=== PATIENT | female | born 1985 | race Caucasian/White ===

== ENCOUNTER 2021-06-27 03:32 | Outpatient (CLI) | payer OTHER, SELFPAY ==
[2021-06-27 16:02] LABS: Kit/Specimen SENT
[2021-06-27 16:12] LABS: Glucose,1 Hr (Glucola) 114 mg/dL (80-140)
[2021-06-27 16:47] LABS: TSH (W/Ref FT4) 0.81 uIU/mL (0.36-3.74)
[2021-06-27 16:54] LABS: HCT 34.7 % (36.0-46.0); HGB 11.3 g/dL (11.2-15.7); MCH 27.2 pg (27.0-33.0); MCHC 32.6 % (32.0-36.0); MCV 83 fL (80-95); MPV 11.3 fL (8.0-11.0); Platelet Count 260 10^3/uL (130-400); RBC 4.16 10^6/uL (3.93-5.22); RDW 14.3 % (11.7-14.6); RDW-SD 43.8 fL; WBC 11.09 10^3/uL (4.4-10.8)
[2021-06-27 19:32] LABS: Absolute Lymphocyte Count 2.22 10^3/uL (1.2-3.4); Absolute Neutrophil Count 8.21 10^3/uL (1.2-6.7)
[2021-06-27 19:33] LABS: Absolute Monocyte Count 0.67 10^3/uL (0.1-0.8); Diff Comment Manual Differential; RBC Morphology Normal
[2021-07-01 10:36] LABS: HIV-1/2 Ag & Ab Screen Negative (Negative)
[2021-07-01 11:12] LABS: Hepatitis C Ab w Rflx HCV PCR Negative (Negative)
[2021-07-01 11:43] LABS: Rubella IgG Ab (UVM) Positive (See Note); Varicella IgG Antibody Positive (See Note)
[2021-07-01 12:07] LABS: Hepatitis B Surface Ag Negative (Negative)
[2021-07-01 17:30] LABS: Syphilis IgG w/Reflex Nonreactive (Nonreactive)
[2021-07-02 16:19] LABS: Specimen WB Whole Blood
[2021-07-06 16:35] LABS: Result Summary NEGATIVE; Specimen WB Whole Blood
== END 2021-06-27 03:33 | disposition home or self-care (01) ==
LOC: LBO 03:32
PROVIDERS: Visit Provider Advanced Practice Midwife
DX: Z34.91 Encounter for supervision of normal pregnancy, unspecified, first trimester (principal); Z3A.11 11 weeks gestation of pregnancy
CPT/HCPCS: 80307; 81329; 82950; 86787; 86803; 86850; 86900; 86901; 87340; 87389; 81220; 84443; 85025; 86762; 86780; 87086; 87480; 87510; 87660

== ENCOUNTER 2021-06-27 16:39 | Outpatient (REF) | payer OTHER, SELFPAY ==
--- NOTE | 2021-06-27 15:00 | PAPFT_PTH ---
PATIENT: Paola Lombardo LOC: [facility] U#:[id number] AGE/SX: 36/F ROOM: RE06/27/[address]: Parvin Jeffrey CNM : 1985 BED: DIS: 06/27/2021 SPEC #: [id number] RECD: 06/27/21 17:31 STATUS: RAN REJesse #: [id number] EWA: 06/27/21 15:[address]: Parvin Jeffrey DEPT: [facility] Cytology RECD BY: Casandra Corona Tissues: 1 - CX/ENDOCX FOR PAP SMEARS Procedures: PAP THIN PREP/UVM Screening HPV DNA PROBE Comments: [id number] (YANI/JATINDER)
[2021-06-27 17:01] LABS: *AMPHETAMINES SCREEN URINE Negative (Negative); *BARBITURATES SCREEN URINE Negative (Negative); *BENZODIAZEPINES SCREEN URINE Negative (Negative); Cannabinoids THC Negative (Negative); Cocaine Screen,Urine Negative (Negative); METHADONE URINE SCREEN Negative (Negative); OPIATES URINE SCREEN Negative (Negative); Tricyclic Antidepressants Negative (Negative)
[2021-06-28 15:12] LABS: Chlamydia Result Negative (Negative); GC Result Negative (Negative)
[2021-07-04 14:09] LABS: Buprenorphine Negative ng/mL (Cutoff: 5.0); Norbuprenorphine Negative ng/mL (Cutoff: 2.5)
== END 2021-06-27 16:40 | disposition home or self-care (01) ==
LOC: LBN 16:39
PROVIDERS: Visit Provider Advanced Practice Midwife
DX: O26.891 Other specified pregnancy related conditions, first trimester (principal); N89.8 Other specified noninflammatory disorders of vagina; Z12.4 Encounter for screening for malignant neoplasm of cervix; Z11.51 Encounter for screening for human papillomavirus (HPV); Z3A.11 11 weeks gestation of pregnancy; Z11.3 Encounter for screening for infections with a predominantly sexual mode of transmission
CPT/HCPCS: 80307; 87491; 87591; 88142; 87086; 87480; 87510; 87624; 87660

== ENCOUNTER 2021-10-23 01:48 | Outpatient (CLI) | payer OTHER, SELFPAY ==
[2021-10-23 16:17] LABS: HCT 28.6 % (36.0-46.0); HGB 9.3 g/dL (11.2-15.7); MCH 28.3 pg (27.0-33.0); MCHC 32.5 % (32.0-36.0); MCV 87 fL (80-95); MPV 10.1 fL (8.0-11.0); Platelet Count 264 10^3/uL (130-400); RBC 3.29 10^6/uL (3.93-5.22); RDW 12.1 % (11.7-14.6); RDW-SD 39.2 fL; WBC 11.75 10^3/uL (4.4-10.8)
[2021-10-23 16:27] LABS: Glucose,1 Hr (Glucola) 139 mg/dL (80-140)
== END 2021-10-23 01:49 | disposition home or self-care (01) ==
LOC: LBO 01:48
PROVIDERS: Advanced Practice Midwife; Visit Provider Advanced Practice Midwife
DX: Z34.93 Encounter for supervision of normal pregnancy, unspecified, third trimester (principal)
CPT/HCPCS: 36415; 82950; 85027

== ENCOUNTER 2021-11-08 02:09 | Outpatient (CLI) | payer OTHER, SELFPAY ==
[2021-11-08 09:22] LABS: Glucose 1 Hour 139 mg/dL
[2021-11-08 11:48] LABS: Glucose 3 Hour 70 mg/dL
== END 2021-11-08 02:10 | disposition home or self-care (01) ==
LOC: LBO 02:09
PROVIDERS: Visit Provider Advanced Practice Midwife
DX: Z34.93 Encounter for supervision of normal pregnancy, unspecified, third trimester (principal)
CPT/HCPCS: 36415; 82951

== ENCOUNTER → 2021-11-20 01:11 | Outpatient (CLI) | payer OTHER, SELFPAY ==
--- NOTE | 2021-11-20 06:30 | DI.US_ITS ---
Exam(s) US OB JUAN WEIGHT EXAM: US OB JUAN WEIGHT CLINICAL HISTORY: interval growth of fetus and fibroid,d25.9,z34.90 TECHNIQUE: Ultrasound performed using standard protocol. COMPARISON: No exams were available for comparison FINDINGS: Ob ultrasound was performed utilizing 3rd trimester protocol. biometry is consistent with gest ational age of 32 weeks 0 days with with an EDC of January 15. Estimated weight is 1889 grams which is at the 35th percentile for predicted gestational age. Placenta is anterior and fundal. No placenta previa. Inferior placental margin 13 cm from internal cervical os. The cervical length is 3.8 cm. Fetus is in breech presentation. heart rate is 142 BPM. There is visually a normal quantity of amniotic fluid and the JUAN is 12 IMPRESSION: DATA REPOSITORY:
== END ==
PROVIDERS: Visit Provider Advanced Practice Midwife
DX: D25.9 Leiomyoma of uterus, unspecified (principal); Z34.93 Encounter for supervision of normal pregnancy, unspecified, third trimester
CPT/HCPCS: 76816

== ENCOUNTER 2021-12-13 15:42 | Outpatient (CLI) | payer OTHER, SELFPAY ==
[2021-12-13 15:57] VITALS: BP 130/75; PULSE 69
[2021-12-13 16:13] LABS: HCT 35.2 % (36.0-46.0); HGB 11.3 g/dL (11.2-15.7); MCH 28.6 pg (27.0-33.0); MCHC 32.1 % (32.0-36.0); MCV 89 fL (80-95); MPV 10.3 fL (8.0-11.0); Platelet Count 230 10^3/uL (130-400); RBC 3.95 10^6/uL (3.93-5.22); RDW 15.1 % (11.7-14.6); RDW-SD 49.6 fL
[2021-12-13 16:29] LABS: ALT 15 U/L (14-59); AST 17 U/L (15-37); Albumin 2.9 g/dL (3.4-5.0); Alkaline Phosphatase 108 U/L (46-116); Anion Gap 9.8 mmol/L (3-11); BUN 11 mg/dL (7-18); Bilirubin, Total 0.5 mg/dL (0.2-1.0); CO2 21.2 mmol/L (21.0-32.0); CREATININE 0.7 mg/dL (0.55-1.02); Calcium 8.8 mg/dL (8.5-10.1); Chloride 108 mmol/L (98-107); Estimated GFR 116.31 (mL/min/1.73m2); Glucose 78 mg/dL (74-106); LDH 135 U/L (81-234); Potassium 3.8 mmol/L (3.5-5.1); Sodium 139 mmol/L (136-145); Total Protein 6.7 g/dL (6.4-8.2); Uric Acid 4.8 mg/dL (2.6-6.0)
[2021-12-13 16:30] VITALS: BP 130/76; TEMP 36.7
[2021-12-13 16:37] VITALS: BP 131/74; PULSE 69
[2021-12-13 16:40] VITALS: BP 131/74; PULSE 69
[2021-12-13 18:08] LABS: COMMENT (LAB VIEW ONLY) 109.02 mg/dL; PROTEIN 11.5 mg/dL
--- NOTE | 2021-12-14 10:38 | W.OBNST ---
Date of service: 12/13/21 Time of Service: 18:00 NST Evaluation Reason for NST Reasons for Nonstress Test: GESTATIONAL HYPERTENSION Gestational Age Gestational Age in Weeks and Days: 35 Weeks and 3Days Test and Monitor Explained Test/Monitor Explained: Test Explained and Monitor Explained Vital Signs Blood Pressure: 130/76 Temperature: 98.1 F NST Information Date on Monitor: 12/13/21 Time on Monitor: 15:45 Date off Monitor: 12/13/21 Time off Monitor: 16:40 Total Time on Monitor: 55 NST Interventions: None Contraction Frequency: q1-4 NST Evaluation Patient States Movement: Present FHR Baseline: 135 Variability: Moderate 6-25 bpm Accelerations: 15x15 Decelerations: None NST Results: Reactive Note NST Note Note: Paola had BP elevation at the office today. BP at the center 130s/70s. No edema noted. serum labs WNL. protein/creatinene ratio pending. Paola had a meeting with Louise FABIAN today. NST Reviewed and Verified by: Radha Hagen
[2021-12-14 10:39] VITALS: BP 130/76; TEMP 36.7
== END 2021-12-13 16:55 | disposition home or self-care (01) ==
LOC: BCD 15:42 → OBS 15:51
PROVIDERS: Visit Provider Advanced Practice Midwife
DX: O13.3 Gestational [pregnancy-induced] hypertension without significant proteinuria, third trimester (principal); Z3A.35 35 weeks gestation of pregnancy
CPT/HCPCS: 59025; 80053; 85027; 82565; 83615; 84156; 84550

== ENCOUNTER 2021-12-20 11:01 | Outpatient (CLI) | payer OTHER, SELFPAY ==
--- NOTE | 2021-12-20 | DI.US_ITS ---
Exam(s) US OB JUAN WEIGHT EXAM: US OB JUAN WEIGHT CLINICAL HISTORY: Size less than dates, gestation HTN. TECHNIQUE: Transabdominal obstetrical ultrasound was performed. COMPARISON: US US OB JUAN WEIGHT from 11/20/2021 FINDINGS: There is a single viable intrauterine gestation with cardiac activity identified-138 bpm The fetus is presently in cephalic position . Amniotic fluid: There is a normal amount of amniotic fluid with an JUAN of 14.3cm. Placental location: The placenta is anterior,with no evidence of placenta previa.Cervical length is 3 .5 cm and closed. Dating parameters place this at approximately 34 weeks and 6 days gestational age, implying FRANCIS of January 25, 2022. BPD measures 34 weeks and 4 days HC measures 34 weeks and 3 days AC measures 36 weeks and 3 days FL measures 33 weeks and 5 days Estimated weight is 2645 gm-5 pounds, 13 ounces Fetus is at the 23rd percentile on the Hadlock scale. IMPRESSION:: Viable 3rd trimester gestation, as described above. DATA REPOSITORY:
[2021-12-20 11:11] VITALS: BP 148/72; PULSE 64; TEMP 37.3
[2021-12-20 11:28] VITALS: BP 148/72; PULSE 64
[2021-12-20 11:54] VITALS: BP 127/81; PULSE 71
[2021-12-20 12:05] LABS: HCT 36.3 % (36.0-46.0); HGB 12.1 g/dL (11.2-15.7); MCH 29.2 pg (27.0-33.0); MCHC 33.3 % (32.0-36.0); MCV 88 fL (80-95); MPV 10.7 fL (8.0-11.0); Platelet Count 224 10^3/uL (130-400); RBC 4.14 10^6/uL (3.93-5.22); RDW 15.3 % (11.7-14.6); RDW-SD 49.1 fL; WBC 10.69 10^3/uL (4.4-10.8)
[2021-12-20 12:31] LABS: COMMENT (LAB VIEW ONLY) 54.19 mg/dL; PROTEIN 8.1 mg/dL; Prot/Crea Ur Ratio 0.14
[2021-12-20 12:32] LABS: ALT 16 U/L (14-59); AST 16 U/L (15-37); Albumin 2.9 g/dL (3.4-5.0); Alkaline Phosphatase 112 U/L (46-116); Anion Gap 10.8 mmol/L (3-11); BUN 9 mg/dL (7-18); Bilirubin, Total 0.6 mg/dL (0.2-1.0); CO2 21.2 mmol/L (21.0-32.0); CREATININE 0.6 mg/dL (0.55-1.02); Calcium 9.1 mg/dL (8.5-10.1); Chloride 106 mmol/L (98-107); Estimated GFR 120.72 (mL/min/1.73m2); Glucose 100 mg/dL (74-106); Potassium 3.7 mmol/L (3.5-5.1); Sodium 138 mmol/L (136-145); Total Protein 6.7 g/dL (6.4-8.2); Uric Acid 4.7 mg/dL (2.6-6.0)
--- NOTE | 2021-12-20 12:36 | W.OBNST ---
Date of service: 12/20/21 Time of Service: 12:36 NST Evaluation Reason for NST Reasons for Nonstress Test: GESTATIONAL HYPERTENSION Gestational Age Gestational Age in Weeks and Days: 36 Weeks and 3Days Test and Monitor Explained Test/Monitor Explained: Test Explained, Monitor Explained and Patient Verbalized Understanding Vital Signs Blood Pressure: 148/72 (retaken 10 minutes jxodo=[id number]/81) Pulse: 64 Temperature: 99.1 F NST Information Time on Monitor: 11:16 NST Interventions: PO Hydration NST Evaluation Patient States Movement: Present Variability: Moderate 6-25 bpm Accelerations: 15x15 Decelerations: None Note NST Note Note: Labs drawn and nml 4 wk interval growth scan done today Weekly NST's & BP check will be scheduled Pt takes BP at home/work daily NST Reviewed and Verified by: Parvin Jeffrey
[2021-12-20 12:37] VITALS: BP 148/72; PULSE 64; TEMP 37.3
== END 2021-12-20 13:15 | disposition home or self-care (01) ==
LOC: BCD 11:02 → OBS 11:10
PROVIDERS: Advanced Practice Midwife; Visit Provider Advanced Practice Midwife
DX: O13.3 Gestational [pregnancy-induced] hypertension without significant proteinuria, third trimester (principal); O26.843 Uterine size-date discrepancy, third trimester; Z36.85 Encounter for antenatal screening for Streptococcus B; Z3A.36 36 weeks gestation of pregnancy
CPT/HCPCS: 59025; 36415; 76816; 80053; 85027; 82565; 84156; 84550; 87081

== ENCOUNTER 2021-12-25 14:45 | Outpatient (CLI) | payer OTHER, SELFPAY ==
[2021-12-25 15:29] VITALS: BP 133/74; PULSE 63; TEMP 36.8
[2021-12-25 15:52] VITALS: BP 133/74; PULSE 63
--- NOTE | 2021-12-25 16:20 | W.OBNST ---
Date of service: 12/25/21 Time of Service: 15:30 NST Evaluation Reason for NST Reasons for Nonstress Test: GESTATIONAL HYPERTENSION Gestational Age Gestational Age in Weeks and Days: 37 Weeks and 1Days Test and Monitor Explained Test/Monitor Explained: Test Explained and Monitor Explained Vital Signs Blood Pressure: 133/74 Pulse: 63 Temperature: 98.2 F Urine Results Urine Protein: Negative Urine Ketones: Negative Urine Glucose: Negative Urine Blood: Negative NST Information Date on Monitor: 12/25/21 Time on Monitor: 15:34 Date off Monitor: 12/25/21 Time off Monitor: 16:05 Total Time on Monitor: 31 NST Interventions: PO Hydration Contraction Frequency: Q2min NST Evaluation FHR Baseline: 125 Variability: Moderate 6-25 bpm Accelerations: 15x15 Decelerations: None NST Results: Reactive Note NST Note Note: Reactive and reassuring NST. Declines VE today. Is planning repeat NST and JUAN in 1 week per consult with Dr. Mary today. Dr. Mary had also visited with Paola as she was asking about possibility of scheduled C/S vs induction. She had read that induction for HTN increases risk of C/S. I reviewed that that it somewhat true and that it is increased for women with severe hypertension on medications more so than for her at this time. Dr. Mary agreed with this and patient is feeling even more reassured. NST Reviewed and Verified by: Radha Musa
[2021-12-25 16:23] VITALS: BP 133/74; PULSE 63; TEMP 36.8
== END 2021-12-25 16:11 | disposition home or self-care (01) ==
LOC: BCD 15:25 → OBS 15:28
PROVIDERS: Visit Provider Advanced Practice Midwife
DX: O13.3 Gestational [pregnancy-induced] hypertension without significant proteinuria, third trimester (principal); Z3A.37 37 weeks gestation of pregnancy
CPT/HCPCS: 59025

== ENCOUNTER 2021-12-31 07:22 | Outpatient (CLI) | payer OTHER, SELFPAY ==
[2021-12-31 16:15] VITALS: BP 135/82; PULSE 63; TEMP 36.6
[2021-12-31 16:24] VITALS: BP 150/85; PULSE 63
--- NOTE | 2021-12-31 16:43 | W.OBNST ---
Date of service: 12/31/21 Time of Service: 16:43 NST Evaluation Reason for NST Reasons for Nonstress Test: GESTATIONAL HYPERTENSION Gestational Age Gestational Age in Weeks and Days: 38 Weeks and 0Days Test and Monitor Explained Test/Monitor Explained: Test Explained, Monitor Explained and Patient Verbalized Understanding Vital Signs Blood Pressure: 135/82 Pulse: 63 Temperature: 97.9 F Urine Results Urine Protein: Negative Urine Ketones: Negative Urine Glucose: Negative Urine Blood: Negative NST Information Date on Monitor: 12/31/21 Time on Monitor: 16:13 Date off Monitor: 12/31/21 Time off Monitor: 16:33 Total Time on Monitor: 20 NST Interventions: PO Hydration Contraction Frequency: 3-6 NST Evaluation Patient States Movement: Present FHR Baseline: 135 Variability: Moderate 6-25 bpm Accelerations: 15x15 Decelerations: None NST Results: Reactive Note NST Note Note: 12/31/21 Margarita had NST for GHTN which is reactive and reassurng. BP stable. No signs of pre-eclampsia. JUAN 15.7 in office today. Agrees to induction on 01/10/22 which is 39w3d. I have reviewed signs of labor and signs of pre-eclampsia with margarita and she will call with any concerns. NST Reviewed and Verified by: Radha Musa
[2021-12-31 16:45] VITALS: BP 135/82; PULSE 63; TEMP 36.6
== END 2021-12-31 16:43 | disposition home or self-care (01) ==
LOC: BCD 07:23 → OBS 15:18
PROVIDERS: Visit Provider Advanced Practice Midwife
DX: O13.3 Gestational [pregnancy-induced] hypertension without significant proteinuria, third trimester (principal); Z3A.38 38 weeks gestation of pregnancy
CPT/HCPCS: 59025

== ENCOUNTER 2022-01-10 08:16 | Inpatient (IN) | payer OTHER, SELFPAY ==
[2022-01-10] VITALS (7 sets, daily range): BP systolic 122–151; BP diastolic 71–99; PULSE 61–71; RESP 18–20; TEMP 36.4–36.9
--- NOTE | 2022-01-10 08:23 | W.PM.OBHPL1 ---
Date of service: 01/10/22 Time of Service: 08:23 Assessment and Plan Assessment and plan (1) Gestational hypertension: Status: Acute Assessment and plan: A: 36 yo @ 39+3 wks gestational HTN without severe features unfavorable cvx with antonio score of 4 Category 1 tracing GBS neg, low risk for SD, moderate risk for PPH P: Admit for cervical ripening/IOL Baseline labs ordered, COVID swab done Misoprostel per guidelines; consider cervical balloon Once antonio score advances will consider AROM, pitocin Pt counseled on R&B, time required for successful ripening Dr. Trejo available for consultation prn OB-HPI Labor/Delivery History of Present Illness Reason for Visit: Gestational HTN at 39 weeks Chief Complaint: Scheduled Induction of Labor Indication for Induction: Gestational Hypertension. FRANCIS Calculator Estimated Delivery Date Method Current WG Current Estimate 01/14/22 Ultrasound #1 39w 3d Other Estimates 01/09/22 LMP (Certain) 40w 1d Comments: Paola began having systolic BP readings in the office of 140 at 34 wks, with two recorded elevations in the center of 148 and 150, interspersed with normal readings for the past month, weekly NST's have been reactive. Labs have been checked twice, all levels nml. Ultrasound at 36 wks shows growth in 23rd percentile with JUAN of 14, JUAN rechecked last week and found nml @ 15. This morning pt's BP is stable at 130's over 75, she denies symptoms, and NST is reactive, labs pending. Other previous findings include a uterine fibroid noted on ultrasound report earlier in the , and anemia in the third trimester treated with iron supplementation. She is admitted for induction of labor via cervical ripening due to gestational HTN without severe features. Risks and benefits of ripening and induction versus expectant management have been reviewed with pt and she consents to beginning the cervical ripening process. History of Present Expected Delivery Route/Plan - CNM FOB/ - Roshan Lombardo (first child) BB Quinton Naif Lombardo yes to circ GBS negative Specific Issues/Plan 1. Pt & are vaccinated and boosted 2. BMI 33, early [id number] 2a. 28 week 1 hour 139: 3 hr GTT 11/08: nml x4 3. FOB with right bundle branch block (RBBB); no tx 4. Pt's father, pgm & cousin with bicuspid aortic valve 4a. Offered level 2 scan w/MFM consult @ [facility], possible echo, declined. 5. cfDNA low prob x5, male, CF & SMA negative, declines AFP at 16-20 wks 6. Low dose ASA for nulliparity & BMI 33, start @ 12 wks 7. LC consult after 36 wks: large breasted, left nipple somewhat flat 8. Bacterial vaginosis- metronidazole escribed 9. Single 5x4x3 cm fibroid @ 18 wk US, interval growth of fetus & fibroid @ 32 wks 9a. US 11/20 Breech, growth 35%, JUAN WNL, no mention of fibroid 10. Anemia @ 28 wks: hgb 9.3/hct 28.6, start ferrous sulfate 10/24 11. Hypertension- weekly testing and labs PRN 11a. 36 wk scan for EFW in 23rd percentile, JUAN=14, cephalic Informed Consent Informed Consent: Induction of Labor (via cervical ripening) and Risk,Benefits,Alternatives Discussed Review of Systems Narrative: ROS completed and found noncontributory other then HPI PFSH All Active Problems (Updated 01/10/22 @ 09:05 by Parvin Jeffrey) Gestational hypertension (Acute) Fibroid, uterine (Acute) (Acute) BMI 33.0-33.9,adult (Acute) Medical History (Updated 01/10/22 @ 09:05 by Parvin Jeffrey) Anemia affecting Constipation during Family history of bicuspid aortic valve Family History (Updated 12/06/21 @ 16:19 by Radha Hagen CNM) Mother Breast cancer at age 58 Hypertension Father Congenital heart valve abnormality Maternal Grandmother Heart disease Social History Smoking/Tobacco Use Status: Never Smoking risk assessment performed?: Yes Alcohol Intake: never Drug use: Never Substance use type: does not use Do you feel safe at home: Yes Do you feel safe in your relationship?: Yes History History 2 Para 0 Hx # Term Pregnancies 0 Multiple births 0 Hx # Pregnancies 0 Ectopic pregnancies 0 AB induced 1 Hx Number of Living Children 0 AB spontaneous 0 Meds Allergies and Home Medications Allergies Allergy/AdvReac Type Severity Reaction Status Date / Time No Known Allergies Allergy Verified 12/31/21 15:43 Home Medications Medication Instructions Recorded Confirmed Type vits 75-iron 28 mg-folic pkg PO 06/03/21 12/31/21 History acid 800 mcg-omega-3 oral combo pack (One A Day Women's DHA) ferrous sulfate 325 mg (65 mg 325 mg PO DAILY #90 tabs 10/24/21 12/31/21 Rx iron) tablet aspirin 81 mg tablet,delayed 81 mg PO DAILY #90 tabs 10/28/21 12/31/21 Rx release docusate sodium 100 mg capsule 100 mg PO BID #60 caps 10/28/21 12/31/21 Rx (Colace) Exam Physical Exam Vital signs: Temp Pulse Resp BP 97.5 F L 71 18 138/75 01/10/22 08:18 01/10/22 08:18 01/10/22 08:18 01/10/22 08:18 Vital Signs Reviewed: Yes Constitutional Constitutional: no acute distress, average body habitus and cooperative Detailed Labor and Delivery Exam Dilation: 1.5 Effacement (%): 60 station: -4 Cervix position: posterior Consistency: medium ANTONIO Score(Cervical Ripeness Score): 4 Amniotic Membrane Status: Intact Contraction Frequency(min): 0 Fetus A Heart Rate Baseline: 140 Monitor Accelerations: 15 X 15 Monitor Decelerations: None Variability: Moderate (6-25 BPM) Categories: Category I Est. Weight: 6 lb 9.822 oz Est. Weight: 3000 gms HEENT Exam HEENT Exam: Normal Neck Exam Neck Exam: Normal Chest/Brest/Axilla Exam Chest Exam: Normal Breast Exam Breast Exam: Not Done Respiratory Exam Respiratory Exam: Normal Cardiovascular Exam Cardiovascular Exam: Normal Abdominal Exam Abdominal Exam: Normal (Gravid, nontender) Rectal Exam Rectal Exam: Normal Exam Exam: Normal Extremities Exam Extremities Exam: Normal Back/Spine/Pelvis Exam Back Exam: Normal Pelvis Adequate: Yes Skin Exam Skin Exam: Normal Neurological Exam Neurological Exam: Normal Psychiatric Exam Psychiatric Exam: Normal Results Results Group Beta Strep: Negative Blood Type: O+ Rubella Status: Immune Varicella Immunity: Immune Risk Assessment Risk for Shoulder Dystocia Historical/Initial OB: POSITIVE FOR: Pre- BMI>30; NEGATIVE FOR: Pelvic Abnormality, Previous Shoulder Dystocia or Previous Macrosomia Increased Risk?: No Risk for Pre-Eclampsia Date Initiated/Initials: to start @ 12 wks jk Yes, if one or more: NEGATIVE FOR: Hx Pre-E/Gest HTN, Chronic HTN, Multiple Gestation, Pre-gestational DM, Renal Disease, Systemic Lupus or APA Syndrome Yes, if 2 or more: POSITIVE FOR: Nulliparity and BMI>30; NEGATIVE FOR: Age>= 35 yrs, >10yr btwn pregnancies, ethinicty, Mother/Sister w/ Pre-E or Previous IUGR Risk for Post- Hemorrhage Initial: NEGATIVE FOR: Multiple Gestation, Previous PPH, Known Clotting Deficiency, Grand Multiparity or Anticoagulation At Risk?: Yes (due to gest HTN and induction procedures) Risks Reviewed Risks Reviewed Upon Admission: Yes
[2022-01-10 08:46] LABS: HCT 38.3 % (36.0-46.0); MCH 29.7 pg (27.0-33.0); MCHC 33.9 % (32.0-36.0); MCV 87 fL (80-95); MPV 10.9 fL (8.0-11.0); Platelet Count 222 10^3/uL (130-400); RBC 4.38 10^6/uL (3.93-5.22); RDW 14.9 % (11.7-14.6); RDW-SD 48.6 fL; WBC 8.62 10^3/uL (4.4-10.8)
[2022-01-10 08:54] LABS: Source Nasal/Nares
[2022-01-10 08:55] LABS: ALT 20 U/L (14-59); AST 19 U/L (15-37); Albumin 2.8 g/dL (3.4-5.0); Alkaline Phosphatase 126 U/L (46-116); Anion Gap 8.7 mmol/L (3-11); BUN 12 mg/dL (7-18); Bilirubin, Total 0.6 mg/dL (0.2-1.0); CO2 21.3 mmol/L (21.0-32.0); CREATININE 0.8 mg/dL (0.55-1.02); Calcium 8.6 mg/dL (8.5-10.1); Chloride 104 mmol/L (98-107); Estimated GFR 99.09 (mL/min/1.73m2); Glucose 151 mg/dL (74-106); Potassium 3.9 mmol/L (3.5-5.1); Sodium 134 mmol/L (136-145); Total Protein 6.6 g/dL (6.4-8.2)
[2022-01-10] MEDS: miSOPROStol 25 MCG TAB 50 MCG PO ×2 (09:00→13:03)
[2022-01-10 09:26] LABS: COVID-19 PCR Negative (Negative)
[2022-01-10 10:13] LABS: PROTEIN 7.5 mg/dL; Prot/Crea Ur Ratio 0.14
--- NOTE | 2022-01-10 13:05 | W.ANESPOSTOP ---
Postoperative Evaluation Date, Time and Location Date Performed: 01/10/22 Time Performed: 13:00 Patient Location: Obstetrics Vital Signs Most Recent Imported Vital Signs: Most Recent Vital Signs Temp Pulse Resp BP 36.7 C 65 18 140/75 01/10/22 10:58 01/10/22 13:03 01/10/22 10:58 01/10/22 13:03 Assessment Mental Status: Awake (Alert & Oriented to Patient Baseline) Airway and Respiratory Function: Patent airway with normal (patient baseline) respiratory exam Cardiovascular Function: Hemodynamically Stable Hydration Status: Adequately Hydrated Nausea & Vomiting: No Nausea or Vomiting Pain: Pt. Denies Any Pain Peripheral Nerve Block: Patient did not receive a nerve block
[2022-01-10] MEDS: miSOPROStol 25 MCG TAB PO (17:35)
--- NOTE | 2022-01-10 17:36 | PGE_ITS ---
Date of service: 01/10/22 Time of Service: 17:36 Informed Consent Informed Consent: Induction of Labor (via cervical ripening) and Risk,Benefits,Alternatives Discussed Pelvic Exam Dilation: 3 Effacement (%): 80 station: -4 Cervix Position: posterior Consistency: soft BISHOPS Score(Cervical Ripeness Score): 7 Fetus A Monitor: External (US) Heart Rate Baseline: 135 Presentation: Cephalic Variability: Moderate (6-25 BPM) Categories: Category I Accelerations: Present Decelerations: None Amniotic Membrane Status: Intact Assessment and Plan Assessment and plan (1) Gestational hypertension: Status: Acute Assessment and plan: A: IOL via misprostel cvx ripening in progress gHTN stable; cvx change to 3/80% Flores score 7, pt comfortable and relaxed Category 1 tracing P: Reduce miso dose to 25 mcg PO this evening Pt plans epidural eventually, [employer]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 Trejo aware of pt status Objective Abnormal lab results 01/10/22 01/10/22 Range/Units 08:35 08:35 RDW 14.9 H (11.7-14.6) % Sodium 134 L (136-145) mmol/L Glucose 151 H (74-106) mg/dL Alkaline Phosphatase 126 H (46-116) U/L Albumin 2.8 L (3.4-5.0) g/dL Temp Pulse Resp BP 98.1 F 63 20 131/71 01/10/22 15:03 01/10/22 15:03 01/10/22 15:03 01/10/22 15:03 Laboratory Results WBC 8.62 10^3/uL (4.4-10.8) 01/10/22 08:35 RBC 4.38 10^6/uL (3.93-5.22) 01/10/22 08:35 Hgb 13.0 g/dL (11.2-15.7) 01/10/22 08:35 Hct 38.3 % (36.0-46.0) 01/10/22 08:35 MCV 87 fL (80-95) 01/10/22 08:35 MCH 29.7 pg (27.0-33.0) 01/10/22 08:35 MCHC 33.9 % (32.0-36.0) 01/10/22 08:35 RDW 14.9 % (11.7-14.6) H 01/10/22 08:35 Plt Count 222 10^3/uL (130-400) 01/10/22 08:35 MPV 10.9 fL (8.0-11.0) 01/10/22 08:35 Sodium 134 mmol/L (136-145) L 01/10/22 08:35 Potassium 3.9 mmol/L (3.5-5.1) 01/10/22 08:35 Chloride 104 mmol/L (98-107) 01/10/22 08:35 Carbon Dioxide 21.3 mmol/L (21.0-32.0) 01/10/22 08:35 Anion Gap 8.7 mmol/L (3-11) 01/10/22 08:35 BUN 12 mg/dL (7-18) 01/10/22 08:35 Creatinine 0.8 mg/dL (0.55-1.02) 01/10/22 08:35 Est GFR (CKD-EPI 2020) 99.09 (mL/min/1.73m2) 01/10/22 08:35 Glucose 151 mg/dL (74-106) H 01/10/22 08:35 Calcium 8.6 mg/dL (8.5-10.1) 01/10/22 08:35 Total Bilirubin 0.6 mg/dL (0.2-1.0) 01/10/22 08:35 AST 19 U/L (15-37) 01/10/22 08:35 ALT 20 U/L (14-59) 01/10/22 08:35 Alkaline Phosphatase 126 U/L (46-116) H 01/10/22 08:35 Total Protein 6.6 g/dL (6.4-8.2) 01/10/22 08:35 Albumin 2.8 g/dL (3.4-5.0) L 01/10/22 08:35 Ur Random Creatinine 51.00 mg/dL 01/10/22 09:35 U Random Total Protein 7.5 mg/dL 01/10/22 09:35 U [place] Prot/Creat Ratio 0.14 01/10/22 09:35 COVID-19 Source Nasal/Nares 01/10/22 08:20 SARS-CoV-2 (PCR) Negative (Negative) 01/10/22 08:20 Patient ABO/Rh O Positive 01/10/22 08:35 Antibody Screen NEGATIVE 01/10/22 08:35 Vital Signs Reviewed: Yes Subjective Patient Reports: No new Complaints Results Hemoglobin/Hematocrit: Hgb 13.0 g/dL (11.2-15.7) 01/10/22 08:35 Hct 38.3 % (36.0-46.0) 01/10/22 08:35 Abnormal Lab Findings: Abnormal Labs 01/10/22 01/10/22 08:35 08:35 RDW 14.9 H Sodium 134 L Glucose 151 H Alkaline Phosphatase 126 H Albumin 2.8 L
--- NOTE | 2022-01-10 20:08 | W.PM.OBNL1 ---
Date of service: 01/10/22 Time of Service: 20:08 Assessment and Plan Assessment and plan (1) Gestational hypertension: Status: Acute Assessment and plan: A: BP 130's/80's, pt comfortable Contractions irregular q2-5 minutes Category 1 tracing, occasional early Options for continued medication vs. rest/obs discussed w/pt P: Will discontinue misoprostel for the night as pt prefers Therapeutic rest, observe for increased labor sx Reassess for plan of care in the morning Objective Vital Signs Reviewed: Yes Subjective Patient Reports: No new Complaints Interval history since last seen: Ate dinner, feeling relaxed and tired. Occasionally appreciates abd tightening with lower abd cramping but feels discomfort is mild. FOB at bedside for support.
[2022-01-10] MEDS: Zolpidem 5 MG TAB PO (20:46)
[2022-01-11] VITALS (88 sets, daily range): BP systolic 104–170; BP diastolic 53–93; PULSE 57–102; RESP 17–18; TEMP 36.8–37; O2SAT 95–100; BMI 32.4
--- NOTE | 2022-01-11 00:18 | W.PM.OBNL1 ---
Date of service: 01/11/22 Time of Service: 00:18 Informed Consent Informed Consent: Regional Anesthesia and Risk,Benefits,Alternatives Discussed Pelvic Exam Dilation: 4 Effacement (%): 100 station: -3 Cervix Position: mid Contractions Monitor Mode: External Contraction Frequency(min): 2-3 Contraction Duration(sec): 60-70 Intensity: Moderate Fetus A Monitor: External (US) Heart Rate Baseline: 140 Presentation: Cephalic Variability: Moderate (6-25 BPM) Categories: Category I Accelerations: Present Decelerations: None Amniotic Membrane Status: Intact (tense forebag palpable) Assessment and Plan Assessment and plan (1) Gestational hypertension: Status: Acute Assessment and plan: A: Active labor in primipara gHTN, stable Category 1 tracing P: [employer] paged for epidural IV access and fluid bolus initiated Anticipate Objective Vital Signs Reviewed: Yes Objective Narrative Objective Narrative: Pt crying, breathing hard with contractions BP remains stable at 130-140's over 80's FOB at bedside providing effective support Subjective Interval history since last seen: Pt slept for about 2 hours after taking Ambien, woke up to more intense contractions that hurt in the lower abdomen, would like an epidural now.
--- NOTE | 2022-01-11 00:41 | ANES.PREOP_ITS ---
General Info Date of Service Date Performed: 01/11/22 Height: 5 ft 7 in Weight: 93.894 kg Body Mass Index (BMI): 32.4 Meds Allergies and Home Medications Allergies Allergy/AdvReac Type Severity Reaction Status Date / Time No Known Allergies Allergy Verified 12/31/21 15:43 Home Medication Medication Instructions Recorded vits 75-iron 28 mg-folic pkg PO 06/03/21 acid 800 mcg-omega-3 oral combo pack (One A Day Women's DHA) ferrous sulfate 325 mg (65 mg 325 mg PO DAILY #90 tabs 10/24/21 iron) tablet docusate sodium 100 mg capsule 100 mg PO BID #60 caps 10/28/21 (Colace) Current Visit Medications: Current Medications Generic Name Dose Route Start Last Admin Trade Name Freq PRN Reason Stop Dose Admin Fentanyl/Ropivacaine 200 ml 01/11/22 00:30 Fentanyl/Ropivacaine 2 Mcg/Ml And 0.1% 200 Ml Cadd Cassette EP DIRECTED TREMAINE Ringer's Solution 500 mls @ 500 mls/hr 01/11/22 00:21 IV 01/11/22 01:20 BOLUS ONE Terbutaline Sulfate 0.25 mg 01/10/22 08:16 Terbutaline 1 Mg/Ml Vial SC PRN PRN Zolpidem Tartrate 5 mg 01/10/22 08:16 01/10/22 20:46 Zolpidem 5 Mg Tab PO 5 mg HS PRN PRN Administration Sleep PFSH Active Problems Active Problems: Problem Status Onset Code Gestational hypertension O13.9 Fibroid, uterine D25.9 Z34.90 BMI 33.0-33.9,adult Z68.33 Medical History Medical History (Updated 01/10/22 @ 09:05 by Parvin Jeffrey) Anemia affecting Constipation during Family history of bicuspid aortic valve Tobacco Smoking/Tobacco Use Status: Never Alcohol Alcohol Intake: never Substance Use Substance use: Never Substance use type: does not use Prental History History 2 2 Para 0 Hx # Term Pregnancies 0 Multiple births 0 Hx # Pregnancies 0 Ectopic pregnancies 0 AB induced 1 Hx Number of Living Children 0 AB spontaneous 0 Vital Signs and Lab Results Vital Signs Most Recent Vital Signs in EMR: Most Recent Vital Signs Temp Pulse Resp BP 36.6 C 68 18 144/87 H 01/10/22 19:20 01/11/22 00:02 01/10/22 19:20 01/11/22 00:02 Lab Results Result Diagrams: 01/10/22 08:35 01/10/22 08:35 Blood Type / Crossmatch: Patient ABO/Rh O Positive 01/10/22 Antibody Screen NEGATIVE 01/10/22 Complete Blood Count: White Blood Count 8.62 10^3/uL (4.4-10.8) 01/10/22 08:35 Red Blood Count 4.38 10^6/uL (3.93-5.22) 01/10/22 08:35 Hemoglobin 13.0 g/dL (11.2-15.7) 01/10/22 08:35 Hematocrit 38.3 % (36.0-46.0) 01/10/22 08:35 Platelet Count 222 10^3/uL (130-400) 01/10/22 08:35 Complete Metabolic Panel: Sodium 134 mmol/L (136-145) L 01/10/22 08:35 Potassium 3.9 mmol/L (3.5-5.1) 01/10/22 08:35 Chloride 104 mmol/L (98-107) 01/10/22 08:35 Carbon Dioxide 21.3 mmol/L (21.0-32.0) 01/10/22 08:35 BUN 12 mg/dL (7-18) 01/10/22 08:35 Creatinine 0.8 mg/dL (0.55-1.02) 01/10/22 08:35 Est GFR (CKD-EPI 2020) 99.09 (mL/min/1.73m2) 01/10/22 08:35 Calcium 8.6 mg/dL (8.5-10.1) 01/10/22 08:35 Albumin 2.8 g/dL (3.4-5.0) L 01/10/22 08:35 Glucose 151 mg/dL (74-106) H 01/10/22 08:35 Liver Function Panel: Alanine Aminotransferase (ALT/SGPT) 20 U/L (14-59) 01/10/22 08: 35 Aspartate Amino Transf (AST/SGOT) 19 U/L (15-37) 01/10/22 08:35 Coagulation Panel: No Data to Display Cardiac Panel: No Data to Display Arterial Blood Gas: No Data to Display Venous Blood Gas: No Data to Display Pancreas Panel: No Data to Display Thyroid Panel: No Data to Display Infectious Disease: Coronavirus (COVID-19)(PCR) Negative (Negative) 01/10/22 08:20 Coronavirus 2019 Source Nasal/Nares 01/10/22 08:20 Blood Cultures: No Data to Display Toxicology Panel: No Data to Display Panel: No Data to Display Anesthesia Assessment and Plan Anesthesia History Personal History: No History of Anesthesia Complications Family History: No Family History of Anesthesia Complications Exercise Tolerance Exercise Tolerance: Metabolic Equivalents>4 Pertinent Negatives Pertinent Negatives: No Symptoms of GERD, No Major Cardiovascular Symptoms or Complaints, No Major Pulmonary Symptoms or Complaints and No History of CVA/TIA Cardiac & Pulmonary Exam Cardiac Exam: Normal S1/S2 Heart Sounds Pulmonary Exam: Clear Bilateral Breath Sounds Implantable Cardiac Device Does patient have a Pacemaker or an ICD?: No Airway Exam Known Difficult Airway: No Mallampati Class: 2 Mouth Opening: Normal (> 3cm) Thyromental Distance: Greater than 3 cm Neck Range of Motion: Full ROM Neck Circumference: Normal Teeth Condition: Normal Dentition ASA Classification ASA Score: ASA 2 Emergency Case?: No NPO Status NPO Status: NPO Clears >2 hours, Solids >8 hours Status Status: Confirmed Anesthesia Plan Resuscitation Status: Full Code Anesthesia Technique: Epidural Anesthesia Airway Planned: Natural Airway Pain Management: Epidural Monitors Used: Standard Monitors
[2022-01-11] MEDS: Lactated Ringers 250 ML 500 ML IV (01:00)
[2022-01-11] MEDS: FentaNYL/ROPIvacaine 2 mcg/ml and 0.1% 200 ML CADD Cassette EP ×2 (01:10→01:22)
--- NOTE | 2022-01-11 01:23 | ANES.NEUR_ITS ---
Epidural/Spinal Catheter Date Performed: 01/11/22 Procedure Start: 01:07 Procedure Stop: 01:10 Requesting Provider: Parvin Jeffrey Procedure Location: Obstetrics Reason Performed: Labor Epidural Standard Monitors Applied: Blood Pressure, SpO2 and See EMR for corresponding vital signs Patient Position: Sitting Sedation Given (Indicate Dose Given): No Sedation given Patient Mental Status: Awake Sterility: Hand Hygiene, Surgical Cap, Surgical Mask, Sterile Gloves, Sterile Drape/Sheet and Chlorhexidine Procedure Location: L2-L3 Interspace Epidural Needle: Tuohy 17 Guage Needle Length: 3.5 Inch Needle Approach: Midline Epidural Procedure: Skin Prepped, Sterile Drape Placed, 1% Lidocaine to skin and subcutaneous tissue with 25G needle, Tuohy Needle placed, GEOFFREY to Saline Used, Epidural Catheter Placed, Negative Heme, Negative CSF Flow and Tuohy Needle Removed Catheter Placed?: Catheter Placed Test Dose (Indicate Dose Given): 5ml 1.5% Lidocaine with 1:200K Epinephrine Given and Negative Test Dose Loss of Resistance Depth (cm): 8 Catheter depth at skin (cm): 13 Dressing: Sorbaview Dressing Placed, Mastisol Used and Dressing reinforced with Tape Epidural Provid er Bolus (Indicate Dose Given): Total Ropivacaine 0.1% with Fentanyl 2mcg/ml Given from pump. (ml) Dose:: 10 ml Additives (Indicate Dose Given ): None Infusion Medication: Medication Infusion Began Medication Infusion: Ropivacaine 0.1% with Fentanyl 2mcg/ml Maintenance Infusion Rate (ml/hour): 10 PCEA Bolus Dose (ml): 5 Block Level: T8 Paresthesia: None Ultrasound: Not Used Number of Attempts (See previous attempts in note section): 1 Procedure Tolerated: No Complications and Patient tolerated well Procedure Outcome: Successful Performed By: Jameson Harris
--- NOTE | 2022-01-11 07:15 | PGE_ITS ---
Date of service: 01/11/22 Time of Service: 07:16 Pelvic Exam Dilation: 10 station: 0 Position: ROP Contractions Monitor Mode: External Contraction Frequency(min): 2-4 Contraction Duration(sec): 60-70 Intensity: Moderate/Strong Fetus A Monitor: External (US) Heart Rate Baseline: 140 Variability: Moderate (6-25 BPM) (interspered with periods of minimal variability) Accelerations: Present Decelerations: None Amniotic Membrane Status: Ruptured Rupture Method: Spontaneous (noted by RN @ 0615, AROM of forebag @ 0700) Amniotic Fluid: Clear Amount: moderate Date of Membrane Rupture: 01/11/22 Time of Membrane Rupture: 06:15 Assessment and Plan Assessment and plan (1) Gestational hypertension: Status: Acute Assessment and plan: A: Progression to 2nd stage Epidural, primipara Category 1 tracing overall with periods of minimal variability, no decels P: Will rotate maternal position to facilitate descent/rotation Assess for adequate uterine power, consider pit aug Begin coached pushing efforts in about an hour Objective Vital Signs Reviewed: Yes Objective Narrative Objective Narrative: Pt is conversational, calm and relaxed, Pt reports an hour of sleep and effective pain relief Is able to move legs effectively and appreciate contractions mildly Declines dutotn but accepts straight cath which was done x1 @ 0615 for 200 ml clear yellow urine RN noticed wet underpads with bloody show at time of cath procedure BP stable at 120's over 70's, afebrile Subjective Interval history since last seen: Epidural is very effective, pt has rested through the night, does report a pain window over left groin area. 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
[2022-01-11] MEDS: Lactated Ringers 1,000 ML 125 ML IV ×2 (10:39→14:34)
--- NOTE | 2022-01-11 10:42 | PGE_ITS ---
Date of service: 01/11/22 Time of Service: 10:42 Pelvic Exam station: +3 Contractions Contraction Frequency(min): 2-5 Contraction Duration(sec): 40-60 Intensity: Moderate/Strong Fetus A Heart Rate Baseline: 140 Variability: Minimal (1-5 BPM) Categories: Category II Decelerations: Early Assessment and Plan Assessment and plan (1) Gestational hypertension: Status: Acute Assessment and plan: A: 2nd stage, primip, epidural, effectively pushing x2 hrs small amt caput gathered, head at/under pubic arch Pt declines dutton, declines pit augmentation less then adequate pain coverage from epidural category 2 tracing d/t min variability, scalp stim+/reassuring, earlies P: continue pushing & position changes, 3rd huddle completed Straight cath for urine (last done 614) prepared for risk of PPH use DELIVERY OF SHOPPING NEWS, DISABILITY INSURANCE CLAIM EXAMINER on unit to adjust epidural dosing anticipate Objective Vital Signs Reviewed: Yes Objective Narrative Objective Narrative: BP remains stable, afebrile Strong maternal expulsive efforts for 2 hrs Epidural effectiveness decreasing, pt very uncomfortable DISABILITY INSURANCE CLAIM EXAMINER on unit to evaluate Dr. Trejo aware of pt status Subjective Interval history since last seen: increased vaginal pressure and general pain, discomfort
--- NOTE | 2022-01-11 11:38 | PGE_ITS ---
Date of service: 01/11/22 Time of Service: 11:38 Informed Consent Informed Consent: Augmentation of Labor (Pit aug declined by pt. Dutton insertion declined by pt. Discussion of possible VAVD declined by pt.) and Risk,Benefits,Alternatives Discussed Pelvic Exam station: +3 Fetus A Heart Rate Baseline: 150 Variability: Minimal (1-5 BPM) Categories: Category II Decelerations: Early Recurrence: Intermittent Amniotic Membrane Status: Ruptured Amniotic Fluid: Clear Assessment and Plan Assessment and plan (1) Gestational hypertension: Status: Acute (2) Prolonged second stage of labor, antepartum: Status: Acute Assessment and plan: A: Full dilation since 0700, Strong pushing x2 hrs Pause in efforts for epidural redosing [id number] Resumed expulsive efforts in H&K on bed, minimal descent from +3 Pt fatigue and frustration noted Category 2 tracing for min variability, scalp stim returned small accel P: Dr. Trejo paged and given report on status She will be in to evaluate and discuss options with pt Objective Vital Signs Reviewed: Yes Objective Narrative Objective Narrative: Pt expressing frustration with lack of progress in pushing. After 2 hrs of good effort, epidural redosed, BOOM STICK WORKER pushed twice This resulted in improved pain management for pt Pt assisted to kneeling position on bed where she has resumed her pushing efforts Category 2 tracing d/t min variability, early decels noted, occasional variable with pushing Straight cath by RN for 500 ml clear yellow urine Pt strongly declines pit aug (it will hurt too much), dutton, or consideration of consult w/MD for VAVD possibility Subjective Interval history since last seen: Pt states she thinks the baby's head is too big and is stuck. Declines pit augmentation after being advised of benefit of stronger and closer contractions to work with. Possibility of consulting for vacuum assist with MD brought up, pt strongly declines any discussion of this option.
[2022-01-11] MEDS: Terbutaline 1 MG/ML VIAL 0.25 MG SC (12:48)
--- NOTE | 2022-01-11 13:05 | OBCE_ITS ---
Date of service: 01/11/22 Time of Service: 13:05 Assessment and Plan Assessment and plan (1) Arrested labor: Status: Acute Assessment and plan: Patient has an arrest of labor with a category 2 heart rate tracing. At this point we will proceed to the OR for primary section. Risk benef its alternatives of delivery were explained to the patient in full informed consent was obtained. She understands the risk of an anesthesia, risk of infection, bleeding, injury to the surrounding organs, risk of thromboembolism. Full informed consent was obtained. She will have preoperat simran antibiotics including Zithromax, and Ancef. She will have a vaginal preparation, DVT prophylaxis with compression stockings, and a Christian catheter inserted. All questions were answered. (2) Prolonged second stage of labor, antepartum: Status: Acute (3) Gestational hypertension: Status: Acute History of Present Illness History of Present Illness Chief Complaint: Arrest of descent Narrative: Patient is a 36-year-old female who has been under the care of the midwifery service. She had a labor induction started yesterday with cervical ripening due to gestational hypertension at term. She received 3 doses of misoprostol and had spontaneous rupture of membranes for clear fluid at approximately 5 AM. She progressed to a normal course of labor to the point that she was completely dilated. She did receive epidural for pain control. Over the course of the last 4 hours she has been in the second stage attempting to deliver with reasonable maternal effort, however there is an arrest of descent. At this point, strip is category 2 with tachycardia in the 160s to 170s, and variable decelerations with contractions. On my examination, baby had significant caput was found to be in the left occiput posterior position. We discussed opportunity of continued pushing efforts versus assisted delivery with vacuum or forceps, or section. Due to the fact that the vertex is not underneath the pubic symphysis, and It is nothing that is present at the introitus with pushing, I would suggest section to expedite delivery process. Risk benefits and alternatives were discussed with the patient in full informed consent was obtained. Consults Consult date: 01/11/22 Requesting physician: Parvin Jeffrey Review of Systems Narrative: Uncomfortable with contractions. Fatigued. Constitutional Constitutional: Reports as per HPI ENT Ears, Nose, Mouth, and Throat: Reports system reviewed and no additional complaints, except as documented Cardiovascular Cardiovascular: Reports system reviewed and no additional complaints, except as documented Respiratory Respiratory: Reports system reviewed and no additional complaints, except as documented PFSH All Active Problems (Updated 01/11/22 @ 13:08 by Tata Trejo DO) Arrested labor (Acute) Prolonged second stage of labor, antepartum (Acute) Gestational hypertension (Acute) Fibroid, uterine (Acute) (Acute) BMI 33.0-33.9,adult (Acute) Medical History Anemia affecting Constipation during Family history of bicuspid aortic valve Family History Mother Breast cancer at age 58 Hypertension Father Congenital heart valve abnormality Maternal Grandmother Heart disease Social History Smoking/Tobacco Use Status: Never Smoking risk assessment performed?: Yes Alcohol Intake: never Drug use: Never Substance use type: does not use Do you feel safe at home: Yes Do you feel safe in your relationship?: Yes History History 2 Para 0 Hx # Term Pregnancies 0 Multiple births 0 Hx # Pregnancies 0 Ectopic pregnancies 0 AB induced 1 Hx Number of Living Children 0 AB spontaneous 0 Exam Narrative Exam Narrative: Significant fatigue. Pain with contractions and pressure. Eyes General: appearance normal, both eyes and all related structures Resp Effort & Inspection: normal respiratory effort, no cough, no grunting and not labored Cardio Palpation: normal PMI Rate: regular rate Other: Complete, vertex at +1 station. Significant caput present. Suspect left occiput posterior position. Extrem General: normal to inspection Results Last Vital Signs Temp 98.3 F 01/11/22 12:37 Pulse 88 01/11/22 11:15 Resp 17 01/11/22 07:00 BP 139/82 01/11/22 11:15 Pulse Ox 98 01/11/22 01:59 Labs Result diagrams: 01/10/22 08:35 01/10/22 08:35
[2022-01-11] MEDS: AZITHROMYCIN 500 MG in Normal Saline 250 ML 250 MG IVPB (13:19)
[2022-01-11] MEDS: ceFAZolin 2 GM/50 ML BAG IVPB (14:01)
--- NOTE | 2022-01-11 15:06 | W.PM.OBCSECT ---
Date of service: 01/11/22 Time of Service: 15:06 Operative Note Operative Note Delivery Method: Unscheduled STAT: No and Primary NTSV>37 Weeks: Yes DATE OF PROCEDURE: 01/11/22 PRE-OP DIAGNOSES: at 39-4/7 weeks, gest HTN, failed induction, arrest of descent Grossly bloody urine postop, suspect bladder trauma, hematoma. PROCEDURE: Primary low-transverse section SURGEON: Tata Trejo Mechanical Applications Engineer: Parvin Jeffrey Anesthesia: spinal Estimated blood loss (mL): 700 Pathology: none sent Complications: Other (Postoperative grossly bloody urine. Suspect bladder hematoma) Patient was transported to: floor Patient's condition: stable Indications: Labor arrest after prolonged second stage Findings: Delivery of a viable male infant from the occiput posterior position. Normal-appearing tubes, ovaries, uterus. Small posterior uterine fibroid. Postoperative hematuria Procedure Description: After full informed consent was obtained, patient was taken the operating suite with an IV running where she was placed in the seated position. Her epidural catheter was removed and found to be intact. Spinal anesthesia was administered, and the patient returned to the dorsal supine position with a leftward tilt. Her anesthesia was tested and found to be adequate. She was then prepped and draped in the usual sterile fashion including a vaginal preparation and insertion of Christian catheter. The vertex was low within the pelvis and elevated out of the pelvis with manual pressure. Patient had pneumatic compression stockings placed for DVT prophylaxis. At this point, after retesting her anesthesia which was adequate, Pfannenstiel skin incision was made carried down to the underlying fascia. The fascia was nicked in the midline and the fascial incision extended laterally. The rectus muscles were in the midline and the peritoneum identified, tented up and entered sharply. The peritoneal incision was then extended superiorly and inferiorly and the bladder blade was inserted. The vesicouterine peritoneum was identified and a bladder flap was created. The DeLee bladder blade was then reinserted and a low transverse uterine incision was made and extended bluntly laterally. Upon entering the uterus, the shoulder was noted. With meticulous attention to the position the vertex was delivered from deep within the pelvis in the occiput posterior position. Head was delivered through the incision, there was no evidence of nuchal cord, and the shoulders followed with ease. At this point three-vessel cord was noted clamped x2 and cut and the was handed off to the waiting petroleum engineer. Cord blood sample, and segment of cord for cord gases were both obtained. At this point the placenta was manually expressed from the uterus. It was noted to be somewhat adherent in the right cornual region. At this point the uterus was exteriorized and cleared of all clot and debris. On inspection of the uterine incision there was noted to be an extension on the right aspect of the incision heading toward the cervix. The uterine incision was closed using 0 Monocryl suture in a running locked fashion. There is an area at the right apex of the incision that was nonhemostatic and this was suture-ligated with a second 0 Monocryl suture. A second, imbricating layer was then placed. Hemostasis was noted throughout. At this point the uterus was returned to the abdomen abdomen irrigated with copious amounts of normal saline. The catheter was inspected and urine was noted to be grossly bloody. Due to this, reinspection of the bladder was performed and no evidence of trauma was noted. The bladder was then backfilled with sterile formula, and no extravasation was noted. Clinically, patient is suspected to have hematuria from head compression of the bladder over the prolonged second stage. At this point, uterine incision was again inspected and found to be hemostatic. The fascial incision was closed using 0 Vicryl suture. Subcutaneous tissue irrigated with copious amounts of normal saline and the subcu space closed with 3-0 Vicryl suture in a simple interrupted fashion. Skin edge was then reapproximated with 4-0 Monocryl, undyed, in a subcuticular fashion. Steri-Strips and sterile dressing were placed. Fundal massage was performed, uterus was noted to be firm, and at the umbilicus. Patient was then returned to the floor in stable condition. Her Christian catheter is in place draining blood-tinged urine. Findings: Delivery of a viable male infant from an occiput posterior position. Normal-appearing uterus with uterine fibroid. Normal-appearing tubes and ovaries. Grossly bloody urine without evidence of bladder injury or extravasation of sterile milk. Clinical suspicion is that of traumatized bladder, versus bladder hematoma. Complication: Blood-tinged urine Fluids: Crystalloid per anesthesia EBL: 700 mL [place] Gender: Male
[2022-01-11] MEDS: Ketorolac 30 MG/ML VIAL IVP (20:47)
[2022-01-11] MEDS: Normal Saline Flush 10 ML SYR IVP (20:48)
[2022-01-12 01:00] VITALS: BP 108/56; PULSE 64; RESP 18; TEMP 36.6
[2022-01-12] MEDS: Normal Saline Flush 10 ML SYR IVP ×3 (02:13→15:15)
[2022-01-12] MEDS: Ketorolac 30 MG/ML VIAL IVP ×3 (02:13→15:15)
[2022-01-12 05:00] VITALS: BP 100/55; PULSE 64; RESP 18; TEMP 36.6
[2022-01-12 06:50] LABS: Abs Immature Grans 0.13 10^3/uL (0.0-0.06); Absolute Basophil Count 0.04 10^3/uL (0.0-0.2); Absolute Monocyte Count 1.02 10^3/uL (0.1-0.8); Basophils % 0.2; Eosinophils % 0.1; HCT 27.4 % (36.0-46.0); HGB 8.8 g/dL (11.2-15.7); Immature Grans % 0.6; Lymphocytes % 7.9; MCH 28.9 pg (27.0-33.0); MCHC 32.1 % (32.0-36.0); MCV 90 fL (80-95); Monocytes % 4.9; Neutrophils % 86.3; Platelet Count 193 10^3/uL (130-400); RBC 3.05 10^6/uL (3.93-5.22); RDW 15.2 % (11.7-14.6); RDW-SD 50.2 fL; WBC 20.79 10^3/uL (4.4-10.8)
[2022-01-12 06:53] LABS: Absolute Eosinophil Count 0.02 10^3/uL (0.0-0.7); Absolute Lymphocyte Count 1.64 10^3/uL (1.2-3.4); Absolute Neutrophil Count 17.94 10^3/uL (1.2-6.7)
[2022-01-12] MEDS: Docusate Sodium 100 MG CAP PO (09:30)
--- NOTE | 2022-01-12 09:37 | W.PM.OBPNV1 ---
Date of service: 01/12/22 Time of Service: 09:37 Assessment and Plan Assessment and plan (1) Status post primary low transverse section: Status: Acute Assessment and plan: Postoperative day #1 status post primary low transverse section. Doing well. Will increase ambulation, oral pain medication. Advance diet as tolerated. Anticipate discharge on Thursday. (2) Hematuria: Status: Acute Assessment and plan: Urine is now clear. Christian catheter to be discontinued today. Subjective Subjective Interval history: Patient seen and examined this morning. Vital signs are stable. Urine is now clear. Somewhat emotional today. Bonding well with her . Working on breast-feeding. Exam Physical Exam Vital signs: Temp Pulse Resp BP Pulse Ox 97.9 F 64 18 100/55 L 98 01/12/22 05:00 01/12/22 05:00 01/12/22 05:00 01/12/22 05:00 01/11/22 18:13 Vital Signs Reviewed: Yes Constitutional Comments: Overall feeling well. Good pain control. Desires to ambulate today. HEENT Exam HEENT Exam: Normal Neck Exam Neck Exam: Normal Respiratory Exam Respiratory Exam: Normal Cardiovascular Exam Cardiovascular Exam: Normal Abdominal Exam Comments: Incision is dressed. Abdomen is soft Fundal Exam Fundus: Below Umbilicus and Firm Extremities Exam Extremity Exam: Normal and Edema (1+); negative Calf Tenderness Neurological Exam Neurological Exam: Normal Results Hemoglobin/Hematocrit: Hgb 8.8 g/dL (11.2-15.7) L D 01/12/22 06:02 Hct 27.4 % (36.0-46.0) L 01/12/22 06:02 Abnormal Lab Findings: Abnormal Labs 01/10/22 01/10/22 01/12/22 08:35 08:35 06:02 WBC 20.79 H RBC 3.05 L Hgb 8.8 L D Hct 27.4 L RDW 14.9 H 15.2 H Absolute Neutrophils 17.94 H Absolute Monocytes 1.02 H Sodium 134 L Glucose 151 H Alkaline Phosphatase 126 H Albumin 2.8 L
[2022-01-12 11:01] VITALS: BP 123/69; PULSE 81; RESP 17; TEMP 36.5; O2SAT 98
[2022-01-12 11:03] VITALS: BP 123/69; PULSE 81; RESP 17; O2SAT 98
[2022-01-12] MEDS: Acetaminophen 325 MG TAB 650 MG PO (12:28)
--- NOTE | 2022-01-12 13:27 | W.ANESPOSTOP ---
Postoperative Evaluation Date, Time and Location Date Performed: 01/12/22 Time Performed: 13:50 Patient Location: Obstetrics Vital Signs Most Recent Imported Vital Signs: Most Recent Vital Signs Temp Pulse Resp BP Pulse Ox 36.5 C 81 17 123/69 98 01/12/22 11:01 01/12/22 11:03 01/12/22 11:03 01/12/22 11:03 01/12/22 11:01 Most Recent Vital Signs Temp Pulse Resp BP 36.7 C 65 18 140/75 01/10/22 10:58 01/10/22 13:03 01/10/22 10:58 01/10/22 13:03 Pain Score Most Recent Pain Score: Most Recent Pain Score Pain Level [Abdomen] 4 01/12/22 11:03 Pain Level 3 01/11/22 20:47 Assessment Mental Status: Awake (Alert & Oriented to Patient Baseline) Airway and Respiratory Function: Patent airway with normal (patient baseline) respiratory exam Cardiovascular Function: Hemodynamically Stable Hydration Status: Adequately Hydrated Nausea & Vomiting: No Nausea or Vomiting Pain: Pt. Denies Any Pain Peripheral Nerve Block: Other (Spinal appropriately resolved, denied complaint, denied headache, reported some backpain this morning. Epidural catheter was removed tip intact yesterday prior to conversion to spinal. ) Teaching Patient Teaching: Discussed Safe Use of Pain Medication Given Recent Anesthesia (Discussed resolution of IT duramorph and over the counter options for pain control. )
[2022-01-12 14:58] VITALS: BP 112/60; PULSE 72; RESP 17; TEMP 36.6; O2SAT 99
[2022-01-12] MEDS: oxyCODONE 5 mg/Acetaminophen 325 mg TAB PO (18:55)
[2022-01-12 20:42] VITALS: BP 128/77; PULSE 74; RESP 18; TEMP 36.7
[2022-01-13] MEDS: Ibuprofen 600 MG TAB PO ×3 (05:47→19:13)
[2022-01-13] MEDS: oxyCODONE 5 mg/Acetaminophen 325 mg TAB PO ×4 (05:48→23:36)
[2022-01-13 05:52] VITALS: BP 125/82; PULSE 70; RESP 18; TEMP 36.8
[2022-01-13 08:55] VITALS: BP 136/83; PULSE 70; RESP 14; TEMP 37
--- NOTE | 2022-01-13 10:41 | W.PM.OBPNV1 ---
Date of service: 01/13/22 Time of Service: 10:41 Assessment and Plan Assessment and plan (1) Status post primary low transverse section: Status: Acute Assessment and plan: Pt recovering well s/p PCS for arrest of second stage. Routine care planned. Baby to have circumcision with the chemical milling processor today. Likely D/C home tomorrow. Subjective Subjective Narrative: Paola is feeling a bit more pain today but moving around slowly and doing ok. Taking motrin/percocet for pain. Decreasing lochia. Tolerating reg diet ok. +BM yesterday. Tired but feels she is doing ok. Baby struggled to latch so she is currently starting to pump and supplementing with formula. Exam Physical Exam Vital signs: Temp Pulse Resp BP Pulse Ox 98.6 F 70 14 136/83 99 01/13/22 08:55 01/13/22 08:55 01/13/22 08:55 01/13/22 08:55 01/12/22 14:58 Vital Signs Reviewed: Yes Constitutional Constitutional: no acute distress and cooperative Detailed HEENT Exam Head: Present normocephalic and atraumatic Respiratory Exam Respiratory Exam: Normal Abdominal Exam Abdomen: Tender (mildly) Comments: Incision clean, dry, intact Fundal Exam Fundus: Below Umbilicus and Firm Extremities Exam Extremity Exam: Edema (trace) Detailed Neurological Exam Neurological: Present alert, oriented X3 and CN II-XII intact Results Hemoglobin/Hematocrit: Hgb 8.8 g/dL (11.2-15.7) L D 01/12/22 06:02 Hct 27.4 % (36.0-46.0) L 01/12/22 06:02 Abnormal Lab Findings: Abnormal Labs 01/10/22 01/10/22 01/12/22 08:35 08:35 06:02 WBC 20.79 H RBC 3.05 L Hgb 8.8 L D Hct 27.4 L RDW 14.9 H 15.2 H Absolute Neutrophils 17.94 H Absolute Monocytes 1.02 H Sodium 134 L Glucose 151 H Alkaline Phosphatase 126 H Albumin 2.8 L
[2022-01-13 16:47] VITALS: BP 128/76; PULSE 70; RESP 16; TEMP 36.6
[2022-01-13] MEDS: Docusate Sodium 100 MG CAP PO (19:13)
[2022-01-13 19:32] VITALS: BP 125/81; PULSE 69; RESP 16
[2022-01-14] MEDS: oxyCODONE 5 mg/Acetaminophen 325 mg TAB PO (04:57)
[2022-01-14] MEDS: Ibuprofen 600 MG TAB PO (04:57)
--- NOTE | 2022-01-14 08:41 | W.PM.OBPNV1 ---
Date of service: 01/14/22 Time of Service: 08:42 Assessment and Plan Assessment and plan (1) Status post primary low transverse section: Status: Acute Assessment and plan: Postoperative day #3 status post primary low transverse section for arrest of descent. Discharge home today. Follow-up in the office in 2 and 6 weeks. Prescriptions for ibuprofen, Percocet, Colace to the pharmacy. All questions answered. Subjective Subjective Interval history: Patient was seen and examined this morning. Somewhat emotional. We did discuss normal blues, depression, anxiety. Overall, she seems to be doing reasonably well. She does have a good support system in place. We discussed at length her postoperative state and normal expectations when she returns home. She is breast-feeding, though at this point, her milk has not come in. She is supplementing without difficulty. Exam Physical Exam Vital signs: Temp Pulse Resp BP Pulse Ox 97.9 F 69 16 125/81 99 01/13/22 16:47 01/13/22 19:32 01/13/22 19:32 01/13/22 19:32 01/12/22 14:58 Vital Signs Reviewed: Yes Constitutional Constitutional: no acute distress HEENT Exam HEENT Exam: Normal Neck Exam Neck Exam: Normal Respiratory Exam Respiratory Exam: Normal Cardiovascular Exam Cardiovascular Exam: Normal Abdominal Exam Comments: Soft, nontender. Nondistended. Incision clean, dry, intact. Fundal Exam Fundus: Below Umbilicus and Firm Extremities Exam Extremity Exam: Edema (2+, symmetric, bilateral.); negative Calf Tenderness, Redness or Warm to Touch Skin Exam Skin Exam: Normal Psychiatric Exam Psychiatric Exam: Normal Results Hemoglobin/Hematocrit: Hgb 8.8 g/dL (11.2-15.7) L D 01/12/22 06:02 Hct 27.4 % (36.0-46.0) L 01/12/22 06:02 Abnormal Lab Findings: Abnormal Labs 01/10/22 01/10/22 01/12/22 08:35 08:35 06:02 WBC 20.79 H RBC 3.05 L Hgb 8.8 L D Hct 27.4 L RDW 14.9 H 15.2 H Absolute Neutrophils 17.94 H Absolute Monocytes 1.02 H Sodium 134 L Glucose 151 H Alkaline Phosphatase 126 H Albumin 2.8 L
--- NOTE | 2022-01-14 08:50 | DSE_ITS ---
Date of service: 01/14/22 Time of Service: 08:50 DS: Diagnosis Discharge Diagnosis (1) Status post primary low transverse section: Status: Acute Asessment and Plan: Postoperative day #3 status post primary low transverse section for arrest of descent. Male infant,Quinton Disla Discharge Plan Disposition Patient Disposition: Home Condition: Good Discharge Details Reason For Visit: Gestational HTN at 39 Weeks Admit Date/Time: 01/10/22 08:16 Admit Provider: Parvin Jeffrey Attending Provider: Parvin Jeffrey Hospital Course Hospital Course: Patient was admitted at 39 weeks and 3 days for labor induction due to gestational hypertension. She received cervical ripening with misoprostol x3 doses. She had spontaneous rupture of membranes for clear fluid at approximately 5 AM. She progressed through a normal course of labor to the point that she was complete. After approximately 4 to 5 hours of maternal effort, she had a labor arrest with arrest of descent. At that time, there was also some tachycardia in the 170s and decreased variability. She underwent a primary low-transverse section at that point for delivery of a viable male named Quinton. Intraoperatively, and in the immediate postoperative period she was noted to have gross hematuria. Intraoperatively her bladder was backfilled with no extravasation. The gross hematuria cleared after approximately 18 hours. Christian catheter was then removed. She is discharged home postoperative day #3 ambulating, tolerating a regular diet and oral pain medication with stable vital signs. Both mom and baby are in good condition upon discharge. Home Meds and New Rx's Prescriptions: New ibuprofen 800 mg tablet 800 mg PO Q8H PRNQty: 60 1RF oxycodone-acetaminophen [Percocet] 5-325 mg tablet 1 tab PO TID PRNQty: 10 0RF Continued One A Day Women's DHA 28 mg iron- 800 mcg combo pack 1 pkg PO DAILY ferrous sulfate 325 mg (65 mg iron) tablet 325 mg PO DAILY Qty: 90 2RF docusate sodium [Colace] 100 mg capsule 100 mg PO BID Qty: 60 3RF Discharge Instructions Stand Alone Forms: BC Instructions, BC Discharge In struc Activity:: Pelvic rest, no heavy lif Equipment/Supplies:: No Equipment Needed Diet:: As Tolerated Discharge Orders Discharge Orders: Discharge Order (Routine); Ordered 01/14/22 Ordered By: Tata Trejo OB:DS Summary Contraception Discussed Contraception Discussed: Yes Contraceptive Plan: Undecided, [place] Gender-Baby A: Male weight: 6 lb 4.707 oz Status at Discharge Functional status at discharge: independent ambulation Overall status at discharge: patient is progressing back to baseline Mental Status: mental status grossly normal Speech and Movement: speech and movement normal Mood: congruent mood Affect: normal affect Exam Physical Exam Vital signs: Temp Pulse Resp BP Pulse Ox 97.9 F 69 16 125/81 99 01/13/22 16:47 01/13/22 19:32 01/13/22 19:32 01/13/22 19:32 01/12/22 14:58 Narrative: See physical exam from progress note dated 01/14/2022 [facility] All Active Problems Status post primary low transverse section (Acute) Medical History Arrested labor BMI 33.0-33.9,adult Family history of bicuspid aortic valve Fibroid, uterine Gestational hypertension Family History Mother Breast cancer at age 58 Hypertension Father Congenital heart valve abnormality Maternal Grandmother Heart disease Social History Smoking/Tobacco Use Status: Never Smoking risk assessment performed?: Yes Alcohol Intake: never Drug use: Never Substance use type: does not use Do you feel safe at home: Yes Do you feel safe in your relationship?: Yes History History 2 Para 0 Hx # Term Pregnancies 0 Multiple births 0 Hx # Pregnancies 0 Ectopic pregnancies 0 AB induced 1 Hx Number of Living Children 0 AB spontaneous 0 DS: Data Vitals/I&O Vitals and I&O: Vital Signs Temperature 97.9 F 01/13/22 16:47 Pulse 69 01/13/22 19:32 Pulse Rhythm Regular 01/13/22 19:38 Respiratory Rate 16 01/13/22 19:32 Respiratory Depth Normal 01/13/22 19:38 Blood Pressure 125/81 01/13/22 19:32 Blood Pressure Mean 95 01/13/22 19:32 Pulse Oximetry 99 01/12/22 14:58 Pain Level 6 01/14/22 04:57 Intake & Output 01/13/22 01/13/22 01/14/22 11:59 23:59 11:59 Output Total 1300 / 1300 Balance -1300 / -1300 Output: Urine 1300 / 1300 Other: Urine Color Pale
== END 2022-01-14 10:55 | disposition home or self-care (01) | DRG 788 ==
PROVIDERS: Obstetrics & Gynecology; Admitting Provider Advanced Practice Midwife; Visit Provider Advanced Practice Midwife
PROC: 10D00Z1 Extraction of Products of Conception, Low, Open Approach (ICD-10-PCS; CPT 59514; principal; 2022-01-11 13:30)
DX: O13.4 Gestational [pregnancy-induced] hypertension without significant proteinuria, complicating childbirth (principal); O63.1 Prolonged second stage (of labor); Z37.0 Single live birth; O62.1 Secondary uterine inertia; O34.13 Maternal care for benign tumor of corpus uteri, third trimester; O99.02 Anemia complicating childbirth; D64.9 Anemia, unspecified; Z3A.39 39 weeks gestation of pregnancy
CPT/HCPCS: 59514; 36415; 80053; 85027; 86850; 86900; 86901; 87635; 82565; 84156; 85025; J0131; J0456; J0690; J1100; J1885; J2370; J2405; J3010; J3490